=== PATIENT | female | born 1930 | race Two or more races ===

== ENCOUNTER 2018-09-23 10:06 | Observation (INO) | payer MEDICARE, OTHER ==
[2018-09-23] MEDS ORDERED: ACETAMINOPHEN 500 MG TABLET (FP) PO ONE (10:39)
--- NOTE | 2018-09-23 10:43 | PDOC ---
History of Present Illness - General Chief Complaint: Chest Pain Stated Complaint: CHEST PAIN Time Seen by Provider: 09/23/18 10:11 History Source: Patient, Care Provider, Family Exam Limitations: No Limitations - History of Present Illness Initial Comments: 09/23/18 10:40 This is a 88 year old female with a history of HTN, CAN s/p stents in 2007, who presents with chest pain/right lateral chest wall pain with deep inspiration for the past two days. Patient endorses intermittent non productive cough, denies jaw pain, [place], blurry vision, diaphoresis, numbess/tingling, fever, chills , n, v, d, injury, sick contacts, and has not had the flu shot shot this year. Right sided chest pain is palpable, worse with movement and inspiration. Anterior chest pain is pressure like and worse with inspiration and exertion, although can present at rest. PMH: HTN, CAD, HLD, depression PSH: choleycystectomy Social: denies tobacco or alcohol use, lives alone at home, has aide NKDA Past History - Past Medical History Allergies/Adverse Reactions: Allergies Allergy/AdvReac Type Severity Reaction Status Date / Time No Known Allergies Allergy Verified 12/06/15 12:36 Home Medications: Ambulatory Orders Atorvastatin Ca [Lipitor] 40 mg PO HS 12/06/15 Clopidogrel Bisulfate [Plavix -] 75 mg PO DAILY 12/06/15 Gabapentin [Neurontin] 300 mg PO TID 12/06/15 Loratadine [Claritin -] 10 mg PO DAILY 12/06/15 Metformin HCl 850 mg PO DAILY 12/06/15 Metoprolol Tartrate [Lopressor -] 50 mg PO DAILY 12/06/15 Paroxetine HCl [Paxil] 30 mg PO DAILY 12/06/15 Cardiac Disorders: Yes (CAD) COPD: No Diabetes: Yes HTN: Yes - Surgical History Cardiac Surgery: Yes (2 stents) - Immunization History Immunization Up to Date: Yes - Suicide/Smoking/Psychosocial Hx Smoking History: Never smoked Have you smoked in the past 12 months: No Information on smoking cessation initiated: No Hx Alcohol Use: No Drug/Substance Use Hx: No Substance Use Type: None Review of Systems - Review of Systems Able to Perform ROS?: Yes Is the patient limited [place] proficient: No Constitutional: No: Chills, Diaphoresis, Fever, Loss of Appetite, Night Sweats, Weakness HEENTM: No: Blurred Vision, Tearing, Nose Pain, Nose Congestion Respiratory: Yes: Cough, Shortness of Breath, SOB with Exertion, SOB at Rest. No: Orthopnea, Wheezing, Productive cough, Hemoptysis Cardiac (ROS): Yes: Chest Pain. No: Edema, Irregular Heart Rate, Lightheadedness, Palpitations, Syncope, Chest Tightness ABD/GI: No: Abdominal Distended, Abd. Pain w/ defecation, Constipated, Diarrhea , Difficulty Swallowing, Nausea, Vomiting : Yes: Dysuria Musculoskeletal: No: Back Pain Integumentary: No: Bruising, Change in Hair/Nails Neurological: No: Headache, Numbness, Paresthesia, Tingling, Weakness, Unsteady Gait, Dizziness Psychiatric: Yes: Depression Endocrine: No: Excessive Sweating *Physical Exam - Vital Signs Last Vital Signs Temp Pulse Resp BP Pulse Ox 98 F 82 18 162/71 96 09/23/18 10:10 09/23/18 10:10 09/23/18 10:10 09/23/18 10:10 09/23/18 10:29 - Physical Exam General Appearance: Yes: Appropriately Dressed, Apparent Distress HEENT: positive: Normal ENT Inspection, Normal Voice, Pharynx Normal, Other ( dry mucus menbranes) Respiratory/Chest: positive: Decreased Breath Sounds (RLL crackles with inspiration and experation), Crackles. negative: Normal Breath Sounds, Respiratory Distress Cardiovascular: positive: Regular Rate, S1, S2. negative: Murmur Vascular Pulses: Carotid (R): 2+, Carotid (L): 2+, Dorsalis-Pedis (R): 2+, Doralis-Pedis (L): 2+ Gastrointestinal/Abdominal: positive: Normal Bowel Sounds, Soft. negative: Tender Musculoskeletal: negative: CVA Tenderness Extremity: positive: Normal Inspection, Normal Range of Motion Integumentary: positive: Dry Neurologic: positive: flower grader II-XII NML intact, Normal Mood/Affect, Motor Strength 5/5 Heart Score/ECG Review - History History: Highly suspicious - Electrocardiogram EKG: Non specific repolarization disturbance - Age Age: >/= 65 - Risk Factors Risk Factors Heart Score: Yes Hx Hypercholesterolemia, Yes Hx Hypertension Based on the list above the patient has:: 1-2 risk factors - ECG Intrepretation Rhythm: Regular Rhythm - Hiko Hiko: Normal - P and VA Prominent R with upright T in V1 (true posterior [place]): No Delta Wave(s) Present: No WPW: No - ST and T Non Specific ST-T Wave changes: Yes Flattened T Waves: Yes Comment:: 09/23/18 11:49 v2, v5-6 - ECG Impressions Bradycardia: No Tachycardia: Sinus Torsades ravi Pointes: No WPW: No ED Treatment Course - LABORATORY CBC & Chemistry Diagram: 09/23/18 10:47 09/23/18 10:47 - RADIOLOGY Radiology Studies Ordered: Category Date Time Status CHEST PA & LAT [RAD] Stat Radiology 09/23/18 10:24 Ordered Medical Decision Making - Medical Decision Making 09/23/18 11:01 This is a 88 year old Gabonese speaking female with a history of CAD, HTN, HLD, who presents with cough, right/lateral chest wall pain, anterior chest pain with deep inspiration. R/O acute lung/cardiac/bone pathology, including pneumonia, effusion, ACS, fracture, coscochondritis. #chest pain with shortness of breath -cbc, cmp, ua -CXR -ecg -cardiac profile 09/23/18 12:19 -CXR negative to active process including pna, effusion -will get chest CTA to r/o PE due to presenting symptoms, mild hypoxia, sob -r/o ACS; first topponin negative; follow up second -will admit to tele/obs for further work up/monitoring 09/23/18 12:37 -admit to telemetry for obs; Dr. Alonzo accepts. 09/23/18 12:39 *DC/Admit/Observation/Transfer Diagnosis at time of Disposition: Shortness of breath, Costochondral chest pain Chest pain Qualifiers: Chest pain type: intercostal pain Qualified Code(s): R07.82 - Intercostal pain - Discharge Dispostion Decision to Admit order: Yes - Referrals Referrals: Lila Gongora MD [Primary Care Provider] - - Patient Instructions - Post Discharge Activity
--- NOTE | 2018-09-23 10:53 | PDOC ---
Attending Attestation - Resident Resident Name: Tiffanie Alba - ED Attending Attestation I have performed the following: I have examined & evaluated the patient, The case was reviewed & discussed with the resident, I agree w/resident's findings & plan - HPI HPI: 09/23/18 10:53 88 female with history of PR status post stent in 2007 presents with right- sided thoracic and chest pain since yesterday. No injury or strain, reports constant right thoracic pain in the axillary line, localized and worse with positional changes and deep inspiration. Also reports precordial chest pain with deep inspiration, some subjective shortness of breath, reported cough by aid but denied by patient, no fevers or chills. The precordial chest pain is similar to her past angina, the right thoracic pain is new. Denies any abdominal pain or nausea or vomiting, denies any urinary complaints. - Physicial Exam PE: 09/23/18 10:54 Vital signs are within normal limits Alert, speaking full sentences, slight distress with deep inspiration Heart is regular with ectopy and trigeminal pattern, appears to be a disease on monitor. 2/6 systolic ejection murmur. Crackles at the right base, lungs are otherwise clear No rash or bruising, no reproducible rib deformity or tenderness or crepitus No edema - Medical Decision Making 09/23/18 10:55 88-year-old female with right thoracic pain for 1 day and pruritic precordial pain. Vitals are within normal limits with O2 sat notably 95% on room air, crackles at the right base. Rule out pneumonia, rule out effusion, rule out ACS. Labs, EKG Chest x-ray Admission Heart Score/ECG Review #1 ECG reviewed & interpreted by me at: 10:20 General ECG Interpretation: Sinus Rhythm (no ectopy noted on this EKG), Normal Rate (73), Normal Intervals (qtc 409, LVH), No acute ischemic changes (TWI I/AVL ,) Compared to previous ECG there are: No significant change (c/w 12/06/15, TWI I/ AVL more prominent)
[2018-09-23 11:10] LABS: EOS % 11.9 % (0-4.5); HEMATOCRIT 37.6 % (32.4-45.2); HEMOGLOBIN 13.1 GM/dL (10.7-15.3); LYMPH % 18.5 % (8-40); MCH 34.9 pg (25.7-33.7); MCHC 34.9 g/dl (32.0-36.0); MEAN CELL VOLUME 100.2 fl (80-96); MEAN PLT VOLUME 9.4 fl (7.5-11.1); MONO % 9.7 % (3.8-10.2); NEUT % 58.9 % (42.8-82.8); PLATELET COUNT 249 K/MM3 (134-434); RBC 3.75 M/mm3 (3.60-5.2); RDW 12.5 % (11.6-15.6); WHITE BLOOD COUNT 9.4 K/mm3 (4.0-10.0)
[2018-09-23] MEDS ORDERED: ACETAMINOPHEN 325 MG TABLET (FP) ONE (11:12)
[2018-09-23 11:35] LABS: URINE APPEARANCE CLEAR; URINE BILIRUBIN NEGATIVE (<2.0 mg/dL); URINE COLOR STRAW; URINE GLUCOSE (UA) NEGATIVE (NEGATIVE); URINE KETONE NEGATIVE (NEGATIVE); URINE LEUK ESTERASE 1+ (NEGATIVE); URINE NITRITE NEGATIVE (NEGATIVE); URINE PROTEIN NEGATIVE (NEGATIVE); URINE UROBILINOGEN NEGATIVE mg/dL (0.2-1.0)
[2018-09-23 11:42] LABS: EPI CELLS RARE /HPF (FEW); URINE BACTERIA RARE /hpf (NONE SEEN)
[2018-09-23 11:59] LABS: INR 1.01 (0.83-1.09); PROTHROMBIN TIME (PATIENT) 11.9 SEC (9.7-13.0)
[2018-09-23 12:07] LABS: ALBUMIN 3.4 g/dl (3.4-5.0); ALK PHOS 116 U/L (45-117); ANION GAP 8 MMOL/L (8-16); BILIRUBIN,TOTAL 0.4 mg/dL (0.2-1); BLOOD UREA NITROGEN 20 mg/dL (7-18); CALCIUM 9.5 mg/dL (8.5-10.1); CHLORIDE 103 mmol/L (98-107); CO2 29 mmol/L (21-32); CREATININE 1.3 mg/dL (0.55-1.3); GLUCOSE,RANDOM 248 mg/dL (74-106); POTASSIUM 4.7 mmol/L (3.5-5.1); SGOT/AST 19 U/L (15-37); SGPT/ALT 18 U/L (13-61); SODIUM 140 mmol/L (136-145); TOT PROT 7.3 g/dl (6.4-8.2)
--- NOTE | 2018-09-23 14:31 | HP ---
CHIEF COMPLAINT: pain upon inspiration PCP: HISTORY OF PRESENT ILLNESS: 88 y/o female with PMH of of HTN, CAD (s/p stent in 2007), DM, HLD, presents to the ED with a one day history of pain with deep inspiration with associated rib pain. Patient states that the pain started yesterday, its been constant, no radiating, and hurts more so with inspiration. She denies any fevers, chills, or cough. OF note, patient hasn't had a repeat cath and her last stress test was 5 years ago and her wax pumper is . She denies any recent travel. ER course was notable for: (1) vital signs stable, labs unremarkable (2) first set of troponins negative- EKG unremarkable (3) CXR no acute pathology, CTA negative for pulmonary embolism Recent Travel: none PAST MEDICAL HISTORY: see above PAST SURGICAL HISTORY: cholecystectomy, liposuction Social History: Smoking: denies Alcohol:denies Drugs: denies Family History: 2 sons both have cardiac disease; mother had DM Allergies No Known Allergies Allergy (Verified 12/06/15 12:36) HOME MEDICATIONS: Home Medications Medication Instructions Recorded Atorvastatin Ca [Lipitor] 40 mg PO HS 12/06/15 Clopidogrel Bisulfate [Plavix -] 75 mg PO DAILY 12/06/15 Gabapentin [Neurontin] 300 mg PO TID 12/06/15 Loratadine [Claritin -] 10 mg PO DAILY 12/06/15 Metoprolol Tartrate [Lopressor -] 50 mg PO BID 12/06/15 Paroxetine HCl [Paxil] 30 mg PO DAILY 12/06/15 Amlodipine Besylate [Norvasc -] 5 mg PO DAILY 09/23/18 Aspirin [ASA -] 81 mg PO DAILY 09/23/18 Glimepiride 4 mg PO DAILY 09/23/18 Isosorbide Mononitrate [Imdur -] 30 mg PO DAILY 09/23/18 Metformin HCl 850 mg PO DAILY 09/23/18 REVIEW OF SYSTEMS CONSTITUTIONAL: Absent: fever, chills, diaphoresis, generalized weakness, malaise, loss of appetite, weight change HEENT: Absent: rhinorrhea, nasal congestion, throat pain, throat swelling, difficulty swallowing, mouth swelling, ear pain, eye pain, visual changes CARDIOVASCULAR: Present:chest pain Absent: chest pain, syncope, palpitations, irregular heart rate, lightheadedness, peripheral edema RESPIRATORY: Present: shortness of breath Absent: cough, shortness of breath, dyspnea with exertion, orthopnea, wheezing, stridor, hemoptysis GASTROINTESTINAL: Absent: abdominal pain, abdominal distension, nausea, vomiting, diarrhea, constipation, melena, hematochezia GENITOURINARY: Absent: dysuria, frequency, urgency, hesitancy, hematuria, flank pain, genital pain MUSCULOSKELETAL: Absent: myalgia, arthralgia, joint swelling, back pain, neck pain SKIN: Absent: rash, itching, pallor HEMATOLOGIC/IMMUNOLOGIC: Absent: easy bleeding, easy bruising, lymphadenopathy, frequent infections ENDOCRINE: Absent: unexplained weight gain, unexplained weight loss, heat intolerance, cold intolerance NEUROLOGIC: Absent: headache, focal weakness or paresthesias, dizziness, unsteady gait, seizure, mental status changes, bladder or bowel incontinence PSYCHIATRIC: Absent: anxiety, depression, suicidal or homicidal ideation, hallucinations. PHYSICAL EXAMINATION Vital Signs - 24 hr 09/23/18 09/23/18 09/23/18 10:10 10:29 12:20 Temperature 98 F 98.8 F Pulse Rate 82 Pulse Rate [ 64 Apical] Respiratory 18 17 Rate Blood Pressure 162/71 Blood Pressure 134/72 [Right Arm] O2 Sat by Pulse 95 96 96 Oximetry (%) GENERAL: Awake, alert, and fully oriented, in no acute distress. EYES:no scleral icterus.. NECK: no lymphadenopathy, no JVD LUNGS: CTA B/L; no rales, rhonchi or wheezing- pain upon inspiration HEART: Regular rate and rhythm, normal S1 and S2 without murmur, rub or gallop. ABDOMEN: Soft, nontender, not distended, normoactive bowel sounds, no guarding, no rebound, no masses. No hepatomegaly or splenomegaly. MUSCULOSKELETAL: L sided rib tenderness upon palpation,. UPPER EXTREMITIES: 2+ pulses, warm, well-perfused. No cyanosis. No clubbing. No peripheral edema. LOWER EXTREMITIES: 2+ pulses, warm, well-perfused. No calf tenderness. No peripheral edema. NEUROLOGICAL: Cranial nerves II-XII intact. Normal speech. 1+ reflexes B/L upper and lower extremities PSYCHIATRIC: Cooperative. Good eye contact. Appropriate mood and affect. SKIN: Warm, dry, normal turgor, no rashes or lesions noted, normal capillary refill. Laboratory Results - last 24 hr 09/23/18 09/23/18 09/23/18 10:47 10:47 10:47 WBC 9.4 RBC 3.75 Hgb 13.1 Hct 37.6 MCV 100.2 H MCH 34.9 H MCHC 34.9 RDW 12.5 Plt Count 249 MPV 9.4 D Absolute Neuts (auto) 5.5 Neutrophils % 58.9 Lymphocytes % 18.5 D Monocytes % 9.7 Eosinophils % 11.9 H Basophils % 1.0 Nucleated RBC % 0 PT with INR 11.90 INR 1.01 Sodium 140 Potassium 4.7 Chloride 103 Carbon Dioxide 29 Anion Gap 8 BUN 20 H Creatinine 1.3 Creat Clearance w eGFR 38.84 Random Glucose 248 H Calcium 9.5 Total Bilirubin 0.4 AST 19 ALT 18 Alkaline Phosphatase 116 Creatine Kinase 100 Troponin I < 0.02 Total Protein 7.3 Albumin 3.4 Urine Color Urine Appearance Urine pH Ur Specific [place] Urine Protein Urine Glucose (UA) Urine Ketones Urine Blood Urine Nitrite Urine Bilirubin Urine Urobilinogen Ur Leukocyte Esterase Urine WBC (Auto) Urine RBC (Auto) Ur Epithelial Cells Urine Bacteria 09/23/18 10:59 WBC RBC Hgb Hct MCV MCH MCHC RDW Plt Count MPV Absolute Neuts (auto) Neutrophils % Lymphocytes % Monocytes % Eosinophils % Basophils % Nucleated RBC % PT with INR INR Sodium Potassium Chloride Carbon Dioxide Anion Gap BUN Creatinine Creat Clearance w eGFR Random Glucose Calcium Total Bilirubin AST ALT Alkaline Phosphatase Creatine Kinase Troponin I Total Protein Albumin Urine Color Straw Urine Appearance Clear Urine pH 6.0 Ur Specific [place] 1.004 L Urine Protein Negative Urine Glucose (UA) Negative Urine Ketones Negative Urine Blood Negative Urine Nitrite Negative Urine Bilirubin Negative Urine Urobilinogen Negative Ur Leukocyte Esterase 1+ H Urine WBC (Auto) 2 Urine RBC (Auto) <1 Ur Epithelial Cells Rare Urine Bacteria Rare ASSESSMENT/PLAN: 88 y/o female with PMH of HTN, CAD (s/p stent), HLD, DM presents to the ED with a one day history of pain upon inspiration and left sided rib pain # Chest Pain likely 2/2 costochondritis EKG and first set of troponins normal -Echo ordered -trops negative times 3 -CTA negative for PE -monitor vitals and heomodynamics #CAD -c/w aspirin and plavix 75 #HTN -resume home meds: -lopressor 50 BID -amlodipine 5 daily -imdur 30 daily #HLD -continue with lipitor 40 daily #DM -holding oral medications -ISS -BGMS ACHS F/E/N -not on fluids -replete electrolytes when needed sdoium controlled diet DVT PPX: heparin SQ TID dispo: tele-obs Problem List - Problem (1) Chest pain Code(s): R07.9 - CHEST PAIN, UNSPECIFIED Qualifiers: Chest pain type: intercostal pain Qualified Code(s): R07.82 - Intercostal pain (2) Costochondral chest pain Code(s): R07.1 - CHEST PAIN ON BREATHING (3) CAD (coronary artery disease) Code(s): I25.10 - ATHSCL HEART DISEASE OF [place] CORONARY ARTERY W/O ANG PCTRS Visit type - Emergency Visit Emergency Visit: Yes ED Registration Date: 09/23/18 Care time: The patient presented to the Emergency Department on the above date and was hospitalized for further evaluation of their emergent condition. - New Patient This patient is new to me today: Yes Date on this admission: 09/24/18 - Critical Care Critical Care patient: No
[2018-09-23] MEDS ORDERED: HEPARIN NA (PORCINE) 5,000 UNITS/ML 1ML VIAL ONE (15:43)
[2018-09-23] MEDS: HEPARIN NA (PORCINE) 5,000 UNITS/ML 1ML VIAL SQ SCH ×2 (15:46→21:35)
--- NOTE | 2018-09-23 15:53 | EKG ---
Test Reason : Blood Pressure : / mmHG Vent. Rate : 073 BPM Atrial Rate : 073 BPM P-R Int : 188 ms QRS Dur : 084 ms QT Int : 372 ms P-R-T Axes : 029 -20 091 degrees QTc Int : 409 ms NORMAL SINUS RHYTHM MODERATE VOLTAGE CRITERIA FOR LVH, MAY BE NORMAL VARIANT NONSPECIFIC T WAVE ABNORMALITY ABNORMAL ECG WHEN COMPARED WITH ECG OF 06-DEC-2015 12:41, INVERTED T WAVES HAVE REPLACED NONSPECIFIC T WAVE ABNORMALITY IN LATERAL LEADS Confirmed by Lai Barlow ([id number]) on 09/23/2018 3:53:22 PM Referred By: Confirmed By:Lai Barlow
[2018-09-23] MEDS: INSULIN SLIDING SCALE (NOVOLOG) 1 VIAL SQ SCH ×2 (17:09→21:41)
--- NOTE | 2018-09-23 18:06 | PN ---
Teaching Attending Note Name of Resident: Veronica Ariza ATTENDING PHYSICIAN STATEMENT I saw and evaluated the patient. I reviewed the resident's note and discussed the case with the resident. I agree with the resident's findings and plan as documented. SUBJECTIVE: This is an 88 year old woman with a history of HTN, hyperlipidemia, CAD, stent, type 2 DM who comes to the ED complaining of right-sided chest pain that is worse with inspiration since yesterday. She denies palpitations, SOB, dizziness, nausea. OBJECTIVE: Vital Signs Period Temp Pulse Resp BP Sys/Balderas Pulse Ox Last 24 Hr 98 F-98.8 F 60-82 17-18 133-162/71-74 95-100 HEART: S1S2, RRR LUNGS: Clear CHEST: (+) tenderness of anterior and lateral right chest wall ABDOMEN: Soft, non-tender, non-distended, normal BS EXTREMITIES: No edema Laboratory Tests 09/23/18 09/23/18 09/23/18 10:47 10:47 10:47 WBC 9.4 RBC 3.75 Hgb 13.1 Hct 37.6 MCV 100.2 H MCH 34.9 H MCHC 34.9 RDW 12.5 Plt Count 249 MPV 9.4 D Absolute Neuts (auto) 5.5 Neutrophils % 58.9 Lymphocytes % 18.5 D Monocytes % 9.7 Eosinophils % 11.9 H Basophils % 1.0 Nucleated RBC % 0 PT with INR 11.90 INR 1.01 Sodium 140 Potassium 4.7 Chloride 103 Carbon Dioxide 29 Anion Gap 8 BUN 20 H Creatinine 1.3 Creat Clearance w eGFR 38.84 POC Glucometer Random Glucose 248 H Calcium 9.5 Total Bilirubin 0.4 AST 19 ALT 18 Alkaline Phosphatase 116 Creatine Kinase 100 Troponin I < 0.02 Total Protein 7.3 Albumin 3.4 Urine Color Urine Appearance Urine pH Ur Specific [place] Urine Protein Urine Glucose (UA) Urine Ketones Urine Blood Urine Nitrite Urine Bilirubin Urine Urobilinogen Ur Leukocyte Esterase Urine WBC (Auto) Urine RBC (Auto) Ur Epithelial Cells Urine Bacteria 09/23/18 09/23/18 09/23/18 10:59 17:00 17:06 WBC RBC Hgb Hct MCV MCH MCHC RDW Plt Count MPV Absolute Neuts (auto) Neutrophils % Lymphocytes % Monocytes % Eosinophils % Basophils % Nucleated RBC % PT with INR INR Sodium Potassium Chloride Carbon Dioxide Anion Gap BUN Creatinine Creat Clearance w eGFR POC Glucometer 117.23050 Random Glucose Calcium Total Bilirubin AST ALT Alkaline Phosphatase Creatine Kinase Troponin I < 0.02 Total Protein Albumin Urine Color Straw Urine Appearance Clear Urine pH 6.0 Ur Specific [place] 1.004 L Urine Protein Negative Urine Glucose (UA) Negative Urine Ketones Negative Urine Blood Negative Urine Nitrite Negative Urine Bilirubin Negative Urine Urobilinogen Negative Ur Leukocyte Esterase 1+ H Urine WBC (Auto) 2 Urine RBC (Auto) <1 Ur Epithelial Cells Rare Urine Bacteria Rare Home Medications Medication Instructions Recorded Atorvastatin Ca [Lipitor] 40 mg PO HS 12/06/15 Clopidogrel Bisulfate [Plavix -] 75 mg PO DAILY 12/06/15 Gabapentin [Neurontin] 300 mg PO TID 12/06/15 Loratadine [Claritin -] 10 mg PO DAILY 12/06/15 Metoprolol Tartrate [Lopressor -] 50 mg PO BID 12/06/15 Paroxetine HCl [Paxil] 30 mg PO DAILY 12/06/15 Amlodipine Besylate [Norvasc -] 5 mg PO DAILY 09/23/18 Aspirin [ASA -] 81 mg PO DAILY 09/23/18 Glimepiride 4 mg PO DAILY 09/23/18 Isosorbide Mononitrate [Imdur -] 30 mg PO DAILY 09/23/18 Metformin HCl 850 mg PO DAILY 09/23/18 ASSESSMENT AND PLAN: 1. Chest pain - Likely musculoskeletal - Chest CTA negative for PE - Observe on telemetry - Serial troponins - Echocardiogram 2. CAD, history of cornoary stent - Continue aspirin, Lopressor, Lipitor, Imdur, Plavix 3. HTN - Continue Norvasc, Lopressor 4. Hyperlipidemia - Continue Lipitor 5. Type 2 DM - Hold metformin secondary to CT contrast given - Hold Amaryl - Fingersticks with Novolog sliding scale
[2018-09-23] MEDS: METOPROLOL TARTRATE 50 MG TABLET (FP) PO SCH (21:35)
[2018-09-23] MEDS ORDERED: ATORVASTATIN CA 40 MG TABLET (FP) PO SCH (22:00)
[2018-09-24 01:55] VITALS: BMI 23.3
[2018-09-24] MEDS: HEPARIN NA (PORCINE) 5,000 UNITS/ML 1ML VIAL SQ SCH ×2 (05:47→13:59)
[2018-09-24 06:27] LABS: BASO % 1.5 % (0-2.0); EOS % 21.2 % (0-4.5); HEMATOCRIT 36.8 % (32.4-45.2); HEMOGLOBIN 12.4 GM/dL (10.7-15.3); MCHC 33.6 g/dl (32.0-36.0); MEAN PLT VOLUME 9.1 fl (7.5-11.1); MONO % 11.7 % (3.8-10.2); NEUT % 24.6 % (42.8-82.8); PLATELET COUNT 221 K/MM3 (134-434); RBC 3.75 M/mm3 (3.60-5.2); RDW 12.4 % (11.6-15.6); WHITE BLOOD COUNT 7.2 K/mm3 (4.0-10.0)
[2018-09-24] MEDS: INSULIN SLIDING SCALE (NOVOLOG) 1 VIAL SQ SCH ×4 (07:05→17:28)
[2018-09-24 07:14] LABS: ALBUMIN 3.1 g/dl (3.4-5.0); ALK PHOS 91 U/L (45-117); ANION GAP 7 MMOL/L (8-16); BILIRUBIN,TOTAL 0.5 mg/dL (0.2-1); BLOOD UREA NITROGEN 23 mg/dL (7-18); CALCIUM 9.4 mg/dL (8.5-10.1); CHLORIDE 104 mmol/L (98-107); CO2 30 mmol/L (21-32); GLUCOSE,RANDOM 79 mg/dL (74-106); MAGNESIUM 1.6 mg/dL (1.8-2.4); PHOSPHOROUS 3.6 mg/dL (2.5-4.9); POTASSIUM 4.2 mmol/L (3.5-5.1); SGOT/AST 23 U/L (15-37); SGPT/ALT 22 U/L (13-61); SODIUM 141 mmol/L (136-145); TOT PROT 6.5 g/dl (6.4-8.2)
--- NOTE | 2018-09-24 09:54 | EKG ---
Test Reason : Blood Pressure : / mmHG Vent. Rate : 064 BPM Atrial Rate : 064 BPM P-R Int : 216 ms QRS Dur : 086 ms QT Int : 406 ms P-R-T Axes : 031 -10 098 degrees QTc Int : 418 ms SINUS RHYTHM WITH 1ST DEGREE A-V BLOCK WITH PREMATURE ATRIAL COMPLEXES MINIMAL VOLTAGE CRITERIA FOR LVH, MAY BE NORMAL VARIANT NONSPECIFIC T WAVE ABNORMALITY ABNORMAL ECG WHEN COMPARED WITH ECG OF 23-SEP-2018 10:20, PREMATURE ATRIAL COMPLEXES ARE NOW PRESENT Confirmed by SOCRATES NUNEZ, FITZ ([id number]) on 09/24/2018 9:54:24 AM Referred By: Confirmed By:FITZ CROWELL MD
--- NOTE | 2018-09-24 09:56 | EKG ---
Test Reason : Blood Pressure : / mmHG Vent. Rate : 065 BPM Atrial Rate : 065 BPM P-R Int : 202 ms QRS Dur : 082 ms QT Int : 390 ms P-R-T Axes : 050 -10 096 degrees QTc Int : 405 ms SINUS RHYTHM WITH PREMATURE ATRIAL COMPLEXES NONSPECIFIC T WAVE ABNORMALITY ABNORMAL ECG WHEN COMPARED WITH ECG OF 24-SEP-2018 00:11, NO SIGNIFICANT CHANGE WAS FOUND Confirmed by SOCRATES NUNEZ, FITZ ([id number]) on 09/24/2018 9:56:08 AM Referred By: Confirmed By:FITZ CROWELL MD
[2018-09-24] MEDS ORDERED: ISOSORBIDE MONONITRATE 30 MG TAB.SR.24H (FP) PO SCH (10:00)
[2018-09-24] MEDS ORDERED: CLOPIDOGREL BISULFATE 75 MG TABLET (FP) PO SCH (10:00)
[2018-09-24] MEDS ORDERED: ASPIRIN 81 MG CHEWABLE TABLETS PO SCH (10:00)
[2018-09-24] MEDS ORDERED: amLODIPine BESYLATE 5 MG TABLET (FP) PO SCH (10:00)
[2018-09-24 11:42] LABS: ANISOCYTOSIS 1+; MACROCYTOSIS 1+
[2018-09-24] MEDS: METOPROLOL TARTRATE 50 MG TABLET (FP) PO SCH (12:26)
--- NOTE | 2018-09-24 13:11 | ECHO ---
Name: SINGH, SONI Exam:Adult Echocardiogram Study Date: 09/24/2018 10:37 AM Age: 88 yrs Reason For Study: Chest pain Height: 62 in Weight: 130 lb BSA: 1.6 m2 MMode/2D Measurements & Calculations IVSd: 0.77 cm Ao root diam: 3.1 cm LVIDd: 4.4 cm LA dimension: 3.6 cm LVIDs: 2.7 cm LVPWd: 0.99 cm EDV(Teich): 90.0 ml LVOT diam: 2.0 cm ESV(Teich): 28.2 ml Doppler Measurements & Calculations MV E max luiz: 47.4 cm/sec LV V1 max P.4 mmHg MV A max luiz: 82.4 cm/sec LV V1 mean P.1 mmHg MV E/A: 0.57 LV V1 max: 92.3 cm/sec MV dec time: 0.34 sec LV V1 mean: 67.5 cm/sec LV V1 VTI: 21.4 cm MR max luiz: 498.5 cm/sec SV(LVOT): 67.5 ml MR max P.4 mmHg TR max luiz: 201.8 cm/sec Med Peak E' Luiz: 3.1 cm/sec TR max P.8 mmHg Med E/e': 15.4 Lat Peak E' Luiz: 3.7 cm/sec Lat E/e': 12.7 Procedure A two-dimensional transthoracic echocardiogram with color flow and Doppler was performed. Left Ventricle The left ventricular size, thickness and function are normal. The left ventricular ejection fraction is normal. E/A reversal consistent with but not diagnostic of poor LV compliance. The left ventricular w all motion is normal. Right Ventricle The right ventricle is normal in size and function. Atria Normal left and right atrial size and function. Mitral Valve There is mild mitral valve thickening. There is no mitral valve stenosis. There is moderate mitral regurgitation. Tricuspid Valve There is mild tricuspid valve thickening. There is no tricuspid stenosis. There is mild tricuspid regurgitation. Right ventricular systolic pressure is normal. Aortic Valve The aortic valve is normal in structure and function. No hemodynamically significant valvular aortic stenosis. No aortic regurgitation is present. Pulmonic Valve The pulmonic valve is not well visualized. There is no pulmonic valvular stenosis. There is no pulmon ic valvular regurgitation. Great Vessels The aortic root is normal size. Pericardium/Pleura There is no pericardial effusion. Interpretation Summary The left ventricular size, thickness and function are normal The left ventricular ejection fraction is normal. The left ventricular wall motion is normal. The aortic valve is normal in structure and function. There is mild tricuspid regurgitation. Right ventricular systolic pressure is normal. E/A reversal consistent with but not diagnostic of poor LV compliance There is moderate mitral regurgitation. MD Jerad Dotson 09/24/2018 01:11 PM
[2018-09-24 15:31] VITALS: PULSE 73; TEMP 98
[2018-09-24 15:33] VITALS: BP 136/76
--- NOTE | 2018-09-24 15:41 | DS ---
Physical Exam: SUBJECTIVE: Patient seen and examined at bedside. no acute events overnight- patient states she is feeling better and having less pain in her chest and in her ribs. no events noted on tele- she denies any CP/SOB/N/V fevers or chills OBJECTIVE: Vital Signs Period Temp Pulse Resp BP Sys/Balderas Pulse Ox Last 24 Hr 97.4 F-98.8 F 58-73 17-20 111-137/58-76 96-100 PHYSICAL EXAM GENERAL: The patient is awake, alert, and fully oriented, in no acute distress. EYES: no scleral icterus. NECK: no JVD, no lymphadenopathy LUNGS: CTA B/L:; no rales, rhonchi or wheezing; tenderness upon palaption near the right rib. HEART: Regular rate and rhythm, S1, S2 without murmur, rub or gallop. ABDOMEN: Soft, nontender, nondistended, normoactive bowel sounds, no guarding, no rebound, no hepatosplenomegaly, no masses. EXTREMITIES: 2+ pulses, warm, well-perfused, no edema. PSYCH: Normal mood, normal affect. SKIN: Warm, dry, normal turgor, no rashes or lesions noted. LABS Laboratory Results - last 24 hr 09/23/18 09/23/18 09/23/18 17:00 17:06 21:36 WBC RBC Hgb Hct MCV MCH MCHC RDW Plt Count MPV Absolute Neuts (auto) Neutrophils % Neutrophils % (Manual) Band Neutrophils % Lymphocytes % Lymphocytes % (Manual) Monocytes % Monocytes % (Manual) Eosinophils % Eosinophils % (Manual) Basophils % Basophils % (Manual) Myelocytes % (Man) Promyelocytes % (Man) Blast Cells % (Manual) Nucleated RBC % Metamyelocytes Anisocytosis Macrocytosis Sodium Potassium Chloride Carbon Dioxide Anion Gap BUN Creatinine Creat Clearance w eGFR POC Glucometer [phone] Random Glucose Calcium Phosphorus Magnesium Total Bilirubin AST ALT Alkaline Phosphatase Troponin I < 0.02 Total Protein Albumin 09/23/18 09/24/18 09/24/18 22:15 05:30 05:30 WBC 7.2 RBC 3.75 Hgb 12.4 Hct 36.8 MCV 98.0 H MCH 33.0 MCHC 33.6 RDW 12.4 Plt Count 221 MPV 9.1 Absolute Neuts (auto) 1.8 Neutrophils % 24.6 L D Neutrophils % (Manual) 34.4 L Band Neutrophils % 1.0 Lymphocytes % 41.0 H D Lymphocytes % (Manual) 34.3 Monocytes % 11.7 H Monocytes % (Manual) 8 Eosinophils % 21.2 H* Eosinophils % (Manual) 19.2 H Basophils % 1.5 Basophils % (Manual) 0.0 Myelocytes % (Man) 0 Promyelocytes % (Man) 0 Blast Cells % (Manual) 0 Nucleated RBC % 0 Metamyelocytes 0 Anisocytosis 1+ Macrocytosis 1+ Sodium 141 Potassium 4.2 Chloride 104 Carbon Dioxide 30 Anion Gap 7 L BUN 23 H Creatinine 1.0 Creat Clearance w eGFR 52.57 POC Glucometer Random Glucose 79 Calcium 9.4 Phosphorus 3.6 Magnesium 1.6 L Total Bilirubin 0.5 AST 23 ALT 22 Alkaline Phosphatase 91 Troponin I < 0.02 Total Protein 6.5 Albumin 3.1 L 09/24/18 09/24/18 05:44 12:07 WBC RBC Hgb Hct MCV MCH MCHC RDW Plt Count MPV Absolute Neuts (auto) Neutrophils % Neutrophils % (Manual) Band Neutrophils % Lymphocytes % Lymphocytes % (Manual) Monocytes % Monocytes % (Manual) Eosinophils % Eosinophils % (Manual) Basophils % Basophils % (Manual) Myelocytes % (Man) Promyelocytes % (Man) Blast Cells % (Manual) Nucleated RBC % Metamyelocytes Anisocytosis Macrocytosis Sodium Potassium Chloride Carbon Dioxide Anion Gap BUN Creatinine Creat Clearance w eGFR POC Glucometer 91 155 Random Glucose Calcium Phosphorus Magnesium Total Bilirubin AST ALT Alkaline Phosphatase Troponin I Total Protein Albumin Imaging: CTA IMPRESSION: No CT evidence of pulmonary embolism. Mild right basilar and minimal left basilar bronchiectasis. Mild lingular scarring. Borderline cardiac size. Chest XRAY: Impression: No acute chest pathology. Elevated right hemidiaphragm. Large heart Echo: normal ejection fraction, no regional wall motion abnormalities, mild tricuspid regurgitation, normal RV systolic pressure HOSPITAL COURSE: Date of Admission:09/23/18 88 y/o female with PMH of HTN, CAD (s/p 2 stents), HLD DM presents to the ED with a one day history of pain upon inspiration and right sided rib pain. Patient has had admissions with similar complaints to this one in the past. 2 EKGS were done, showing no acute changes from her last EKG done in 2016. Trops X3 were negative. An echo was done which showed a normal ejection fraction, no regional wall motion abnormalities, mild TR with a normal RV systolic pressure. A CTA of the neck was also done which showed no evidence of a pulmonary embolism. Patient was monitored on the cardiac unit overnight and no acute events happened. Patient was stable enough to be discharged home and told to follow up with her PCP in one-two weeks. Date of Discharge: 09/24/18 Minutes to complete discharge: 39 Discharge Summary Reason For Visit: CHEST PAIN Current Active Problems Chest pain (Acute) Costochondral chest pain (Acute) Shortness of breath (Acute) Condition: Stable - Instructions Diet, Activity, Other Instructions: You came to the hospital with complaints of chest pain and right rib pain especially when you breathe. We did a chest XRAY which did not show any acute changes or pathology. They also did another exam called a CTA which visualizes the arterial and venous vessels throughout your body and there was no evidence of any clots present. We did an EKG of your heart which was normal and did blood tests measuring the enzymes of the heart and there was no evidence of any damage. We had you a monitored cardiac unit through the night and you were stable. You clinically improved, your pain subsided and you were stable for discharge home. Please resume all of your home medications Referrals: - we advise that you follow up with Dr. Gongora in one week. please get a blood test in one month. *if you begin to experience any chest pain, shortness of breath, nausea, fevers or vomiting please return to the emergency department immediately Referrals: Lila Gongora MD [Primary Care Provider] - 1 Week Disposition: HOME - Home Medications Comprehensive Discharge Medication List: Ambulatory Orders Atorvastatin Ca [Lipitor] 40 mg PO HS 12/06/15 Clopidogrel Bisulfate [Plavix -] 75 mg PO DAILY 12/06/15 Gabapentin [Neurontin] 300 mg PO TID 12/06/15 Loratadine [Claritin -] 10 mg PO DAILY 12/06/15 Metoprolol Tartrate [Lopressor -] 50 mg PO BID 12/06/15 Paroxetine HCl [Paxil] 30 mg PO DAILY 12/06/15 Amlodipine Besylate [Norvasc -] 5 mg PO DAILY 09/23/18 Aspirin [ASA -] 81 mg PO DAILY 09/23/18 Glimepiride 4 mg PO DAILY 09/23/18 Isosorbide Mononitrate [Imdur -] 30 mg PO DAILY 09/23/18 Metformin HCl 850 mg PO DAILY 09/23/18 Problem List - Problems (1) Chest pain Code(s): R07.9 - CHEST PAIN, UNSPECIFIED Qualifiers: Chest pain type: intercostal pain Qualified Code(s): R07.82 - Intercostal pain (2) Costochondral chest pain Code(s): R07.1 - CHEST PAIN ON BREATHING (3) CAD (coronary artery disease) Code(s): I25.10 - ATHSCL HEART DISEASE OF [place] CORONARY ARTERY W/O ANG PCTRS This patient is new to me today: No Emergency Visit: Yes ED Registration Date: 09/23/18 Care time: The patient presented to the Emergency Department on the above date and was hospitalized for further evaluation of their emergent condition. Critical Care patient: No - Discharge Referral Referred to [facility] Yes Physician Referral: Rosalind Wilkins MD ([facility])
--- NOTE | 2018-09-24 16:11 | PN ---
Teaching Attending Note Name of Resident: Veronica Ariza ATTENDING PHYSICIAN STATEMENT I saw and evaluated the patient. I reviewed the resident's note and discussed the case with the resident. I agree with the resident's findings and plan as documented. SUBJECTIVE: Patient feels better. She denies CP, SOB. OBJECTIVE: Vital Signs Period Temp Pulse Resp BP Sys/Balderas Pulse Ox Last 24 Hr 97.4 F-98.8 F 58-73 17-20 111-137/58-76 96-100 HEART: S1S2, RRR LUNGS: Clear CHEST: No chest wall tenderness ABDOMEN: Soft, non-tender, non-distended, normal BS EXTREMITIES: No edema Laboratory Results - last 24 hr 09/23/18 09/23/18 09/23/18 17:00 17:06 21:36 WBC RBC Hgb Hct MCV MCH MCHC RDW Plt Count MPV Absolute Neuts (auto) Neutrophils % Neutrophils % (Manual) Band Neutrophils % Lymphocytes % Lymphocytes % (Manual) Monocytes % Monocytes % (Manual) Eosinophils % Eosinophils % (Manual) Basophils % Basophils % (Manual) Myelocytes % (Man) Promyelocytes % (Man) Blast Cells % (Manual) Nucleated RBC % Metamyelocytes Anisocytosis Macrocytosis Sodium Potassium Chloride Carbon Dioxide Anion Gap BUN Creatinine Creat Clearance w eGFR POC Glucometer 117.82697 206 Random Glucose Calcium Phosphorus Magnesium Total Bilirubin AST ALT Alkaline Phosphatase Troponin I < 0.02 Total Protein Albumin 09/23/18 09/24/18 09/24/18 22:15 05:30 05:30 WBC 7.2 RBC 3.75 Hgb 12.4 Hct 36.8 MCV 98.0 H MCH 33.0 MCHC 33.6 RDW 12.4 Plt Count 221 MPV 9.1 Absolute Neuts (auto) 1.8 Neutrophils % 24.6 L D Neutrophils % (Manual) 34.4 L Band Neutrophils % 1.0 Lymphocytes % 41.0 H D Lymphocytes % (Manual) 34.3 Monocytes % 11.7 H Monocytes % (Manual) 8 Eosinophils % 21.2 H* Eosinophils % (Manual) 19.2 H Basophils % 1.5 Basophils % (Manual) 0.0 Myelocytes % (Man) 0 Promyelocytes % (Man) 0 Blast Cells % (Manual) 0 Nucleated RBC % 0 Metamyelocytes 0 Anisocytosis 1+ Macrocytosis 1+ Sodium 141 Potassium 4.2 Chloride 104 Carbon Dioxide 30 Anion Gap 7 L BUN 23 H Creatinine 1.0 Creat Clearance w eGFR 52.57 POC Glucometer Random Glucose 79 Calcium 9.4 Phosphorus 3.6 Magnesium 1.6 L Total Bilirubin 0.5 AST 23 ALT 22 Alkaline Phosphatase 91 Troponin I < 0.02 Total Protein 6.5 Albumin 3.1 L 09/24/18 09/24/18 05:44 12:07 WBC RBC Hgb Hct MCV MCH MCHC RDW Plt Count MPV Absolute Neuts (auto) Neutrophils % Neutrophils % (Manual) Band Neutrophils % Lymphocytes % Lymphocytes % (Manual) Monocytes % Monocytes % (Manual) Eosinophils % Eosinophils % (Manual) Basophils % Basophils % (Manual) Myelocytes % (Man) Promyelocytes % (Man) Blast Cells % (Manual) Nucleated RBC % Metamyelocytes Anisocytosis Macrocytosis Sodium Potassium Chloride Carbon Dioxide Anion Gap BUN Creatinine Creat Clearance w eGFR POC Glucometer 91 155 Random Glucose Calcium Phosphorus Magnesium Total Bilirubin AST ALT Alkaline Phosphatase Troponin I Total Protein Albumin Current Medications Generic Name Dose Route Start Last Admin Trade Name Ashishq PRN Reason Stop Dose Admin Amlodipine Besylate 5 mg 09/24/18 10:00 09/24/18 12:26 Norvasc - PO 5 mg DAILY ANDIE Administration Aspirin 81 mg 09/24/18 10:00 09/24/18 12:26 Asa - PO 81 mg DAILY ANDIE Administration Atorvastatin Calcium 40 mg 09/23/18 22:00 09/23/18 21:35 Lipitor - PO 40 mg HS ANDIE Administration Clopidogrel Bisulfate 75 mg 09/24/18 10:00 09/24/18 12:26 Plavix - PO 75 mg DAILY ANDIE Administration Heparin Sodium (Porcine) 5,000 unit 09/23/18 14:15 09/24/18 13:59 Heparin - SQ 5,000 unit TID ANDIE Administration Insulin Aspart 1 vial 09/23/18 16:30 09/24/18 12:37 Novolog Vial Sliding Scale - SQ 2 unit ACHS ANDIE Administration Protocol Isosorbide Mononitrate 30 mg 09/24/18 10:00 09/24/18 12:26 Imdur - PO 30 mg DAILY ANDIE Administration Metoprolol Tartrate 50 mg 09/23/18 22:00 09/24/18 12:26 Lopressor - PO 50 mg BID ANDIE Administration ASSESSMENT AND PLAN: This is an 88 year old woman with a history of HTN, hyperlipidemia, CAD, stent, type 2 DM who presented to the ED with right-sided chest pain. 1. Chest pain - Improved - Likely musculoskeletal - Chest CTA negative for PE - Troponins negative x3 - Echocardiogram shows normal LV, normal LVEF, normal wall motion, mild TR, normal RV systolic pressure, moderate MR, E/A reversal 2. CAD, history of cornoary stent - Continue aspirin, Lopressor, Lipitor, Imdur, Plavix 3. HTN - Continue Norvasc, Lopressor 4. Hyperlipidemia - Continue Lipitor 5. Type 2 DM - Metformin held secondary to CT contrast 6. Disposition - Discharge home
== END 2018-09-24 19:02 | disposition home or self-care (01) ==
LOC: JER 10:06 → JERBED 12:40 → J4W 20:52
PROVIDERS: ADMIT Internal Medicine; ATTEND Internal Medicine
PROC: 3E013GC Introduction of Other Therapeutic Substance into Subcutaneous Tissue, Percutaneous Approach (ICD-10-PCS; principal; 2018-09-23)
DX: R07.1 Chest pain on breathing (principal); R07.82 Intercostal pain; R06.02 Shortness of breath; I10 Essential (primary) hypertension; I25.10 Atherosclerotic heart disease of native coronary artery without angina pectoris; E11.9 Type 2 diabetes mellitus without complications; E78.5 Hyperlipidemia, unspecified; Z79.84 Long term (current) use of oral hypoglycemic drugs; Z95.5 Presence of coronary angioplasty implant and graft
CPT/HCPCS: 36415; 71046-TC-FY; 71275-TC; 80053; 81003; 81015; 82550; 82962; 83735; 84100; 84484; 85025; 85610; 87804; 93005; 93010; 93306-TC; 96372; 99285-25; G0378; J1644

== ENCOUNTER 2019-10-17 10:32 | Emergency (ER) | payer MEDICARE, OTHER ==
[2019-10-17 10:46] VITALS: BMI 22.6
--- NOTE | 2019-10-17 12:15 | PDOC ---
History of Present Illness - General Chief Complaint: Injury Stated Complaint: FALL/INJURY Time Seen by Provider: 10/17/19 11:16 History Source: Patient Exam Limitations: No Limitations - History of Present Illness Initial Comments: 10/17/19 12:16 89-year-old female presents to ED with complaints of left foot pain for the past few days causing her difficulty ambulating. Patient states due to the pain had tripped yesterday landing on her left side hitting her ribs. Patient states no head injury and denies any anticoagulation therapy. Patient denies history of cellulitis and gout but states family history of gout. Patient denies radiation of pain, recent injury prior to yesterday, or recent surgery. Timing/Duration: getting worse Severity: moderate Associated Symptoms: reports: other Past History - Travel Traveled outside of the country in the last 30 days: No Close contact w/someone who was outside of country & ill: No - Past Medical History Allergies/Adverse Reactions: Allergies Allergy/AdvReac Type Severity Reaction Status Date / Time No Known Allergies Allergy Verified 10/17/19 12:14 Home Medications: Ambulatory Orders Atorvastatin Ca [Lipitor] 40 mg PO HS 12/06/15 Paroxetine HCl [Paxil] 30 mg PO DAILY 12/06/15 Amlodipine Besylate [Norvasc -] 5 mg PO DAILY 09/23/18 Aspirin [ASA -] 81 mg PO DAILY 09/23/18 Glimepiride 4 mg PO DAILY 09/23/18 Isosorbide Mononitrate [Imdur -] 30 mg PO DAILY 09/23/18 metFORMIN HCL [Metformin HCl] 1 gm PO BID 09/23/18 Acetaminophen [Tylenol -] 1,000 mg PO TID PRN #42 tablet 10/17/19 Cephalexin [Keflex] 500 mg PO BID #14 capsule 10/17/19 Cranberry Fruit Extract [Cranberry] 500 mg PO ASDIR 10/17/19 Losartan Potassium [Cozaar -] 25 mg PO DAILY 10/17/19 Ranitidine HCl 150 mg PO BID 10/17/19 Cardiac Disorders: Yes (CAD) COPD: No Diabetes: Yes HTN: Yes Hypercholesterolemia: Yes - Surgical History Cardiac Surgery: Yes (2 stents) - Immunization History Immunization Up to Date: Yes - Psycho Social/Smoking Cessation Hx Smoking History: Never smoked Have you smoked in the past 12 months: No Hx Alcohol Use: No Drug/Substance Use Hx: No Substance Use Type: None Patient Lives Alone: Yes Lives with/in: lives alone Review of Systems - Review of Systems Able to Perform ROS?: No Constitutional: No: Symptoms Reported Respiratory: No: Symptoms reported Cardiac (ROS): Yes: Chest Pain (left ribs) ABD/GI: No: Symptoms Reported : No: Symptoms Reported Musculoskeletal: Yes: Joint Pain (Left ribs left foot) Integumentary: Yes: Erythema Neurological: No: Symptoms reported Hematologic/Lymphatic: No: Symptoms Reported *Physical Exam - Vital Signs Last Vital Signs Temp Pulse Resp BP Pulse Ox 98 F 95 H 18 169/95 98 10/17/19 10:40 10/17/19 10:40 10/17/19 10:40 10/17/19 10:40 10/17/19 10:40 - Physical Exam General Appearance: Yes: Nourished, Appropriately Dressed. No: Apparent Distress Neck: positive: Supple. negative: Tender, Decreased range of motion Respiratory/Chest: positive: Chest Tender (Left 6-8 ribs at the mid axillary line extending anteriorly no crepitus no deformity), Lungs Clear, Normal Breath Sounds. negative: Respiratory Distress, Accessory Muscle Use Cardiovascular: positive: Regular Rhythm, Regular Rate. negative: Murmur Extremity: positive: Normal Capillary Refill, Normal Range of Motion. negative : Normal Inspection (Patient noted erythematous warm to touch and slightly edematous area measuring 4 x 5 cm over the dorsal aspect of left foot and MTP area.) Integumentary: positive: Erythema, Swelling Neurologic: positive: Motor Strength 5/5 (Ambulatory with limp) ED Treatment Course - ADDITIONAL ORDERS Additional order review: Laboratory Results 10/17/19 11:22 Uric Acid 6.0 - RADIOLOGY Radiology Studies Ordered: Category Date Time Status FOOT-LEFT [RAD] Stat Radiology 10/17/19 11:21 Completed RIBS-LEFT SIDE [RAD] Stat Radiology 10/17/19 11:21 Completed Medical Decision Making - Medical Decision Making 10/17/19 11:00 Patient with left foot pain for approximately 2 to 3 days now worsening and discomfort. Patient yesterday due to discomfort of the left foot had tripped and fallen landing on her left side. Patient now complaining of left rib pain. Patient denies head injury. Patient on no anticoagulation therapy. Patient denies history of gout exam: Patient with red warm and slightly edematous area over the dorsal aspect of left foot over the fifth MTP. Patient also with tenderness to the left 6-8 ribs at the mid axillary line and anteriorly. No crepitus no deformity Plan: Rib x-ray, foot x-ray uric acid. 10/17/19 12:10 Laboratory Tests 10/17/19 11:22 Uric Acid 6.0 Foot x-ray negative for acute pathology Rib x-ray shows fracture of the left sixth rib and possibly the left fourth rib in the mid axillary line. A pneumothorax is not seen. There is no sign of pleural effusion or atelectasis. Since patient's uric acid was negative. Patient be treated for soft tissues cellulitis of the left foot area was circled with a permanent marker. Son is aware that if the redness swelling or worsening symptoms go beyond the line to return to the ED. Patient was given extra strength Tylenol for rib discomfort along with foot pain. Patient also given rib fracture instructions in regards to splinting, deep breathing, and to stay away from people with upper respiratory infections. Discharge - Discharge Information Problems reviewed: Yes Clinical Impression/Diagnosis: Left rib fracture, Cellulitis Condition: Good Disposition: HOME - Additional Discharge Information Prescriptions: Acetaminophen [Tylenol -] 1,000 mg PO TID PRN #42 tablet PRN Reason: Pain Cephalexin [Keflex] 500 mg PO BID #14 capsule - Follow up/Referral Referrals: Saqib Pisano II, DO [Primary Care Provider] - - Patient Discharge Instructions Patient Printed Discharge Instructions: DI for Cellulitis -- Adult, DI for Rib Fracture Additional Instructions: Please take deep breaths throughout the day when awake approximately 10 deep breaths per hour. Splint area with a soft pillow or hands when deep breathing and coughing. Please stay away from people with upper respiratory infections as this may increase her chances of becoming ill. Take antibiotics as prescribed and observe for worsening redness swelling or discomfort past the permanent marker line over the next 2 days. If noted please return to the nearest ER. - Post Discharge Activity
[2019-10-17 12:48] VITALS: BP 167/84; PULSE 83; TEMP 98.2
== END 2019-10-17 12:48 | disposition home or self-care (01) ==
LOC: SUPCPDRO 10:32 → JER 10:32
DX: S22.32XA Fracture of one rib, left side, initial encounter for closed fracture (principal); L03.116 Cellulitis of left lower limb; W01.0XXA Fall on same level from slipping, tripping and stumbling without subsequent striking against object, initial encounter; Y93.89 Activity, other specified; Y92.038 Other place in apartment as the place of occurrence of the external cause; Y99.8 Other external cause status; I25.10 Atherosclerotic heart disease of native coronary artery without angina pectoris; I10 Essential (primary) hypertension; Z95.5 Presence of coronary angioplasty implant and graft; E78.00 Pure hypercholesterolemia, unspecified; E11.9 Type 2 diabetes mellitus without complications; Z79.84 Long term (current) use of oral hypoglycemic drugs
CPT/HCPCS: 36415; 71101-TC-LT-FY; 73630-TC-LT; 84550; 99282-25

== ENCOUNTER 2021-03-08 10:44 | Emergency (ER) | payer MEDICARE, OTHER ==
[2021-03-08 10:52] VITALS: BMI 25.0
[2021-03-08] MEDS ORDERED: ASPIRIN 325 MG TABLET PO ONE (11:55)
[2021-03-08] MEDS ORDERED: ASPIRIN 325 MG ENTERIC COATED TABLET (FP) ONE (12:00)
[2021-03-08 12:25] LABS: BASO % 0.6 % (0-2.0); EOS % 3.3 % (0-4.5); HEMATOCRIT 33.1 % (32.4-45.2); HEMOGLOBIN 11.3 GM/dL (10.7-15.3); LYMPH % 16.9 % (8-40); MCH 33.8 pg (25.7-33.7); MEAN CELL VOLUME 99.3 fl (80-96); MEAN PLT VOLUME 9.9 fl (7.5-11.1); MONO % 14.4 % (3.8-10.2); NEUT % 64.8 % (42.8-82.8); PLATELET COUNT 179 K/MM3 (134-434); RBC 3.34 M/mm3 (3.60-5.2); RDW 13.2 % (11.6-15.6); WHITE BLOOD COUNT 7.6 K/mm3 (4.0-10.0)
[2021-03-08 12:38] LABS: INR 1.11 (0.83-1.09); PROTHROMBIN TIME (PATIENT) 13.4 SEC (9.7-13.0)
[2021-03-08 12:42] LABS: CHLORIDE 101 mmol/L (98-107); SODIUM 135 mmol/L (136-145)
[2021-03-08 12:44] LABS: CALCIUM 9.5 mg/dL (8.5-10.1)
[2021-03-08 12:45] LABS: ALBUMIN 3.2 g/dl (3.4-5.0); ANION GAP 8 MMOL/L (8-16); BLOOD UREA NITROGEN 14.8 mg/dL (7-18); CO2 27 mmol/L (21-32); GLUCOSE,RANDOM 191 mg/dL (74-106)
[2021-03-08 12:47] LABS: URIC ACID 6.5 mg/dL (2.6-7.2)
[2021-03-08 12:48] LABS: CREATININE 1.1 mg/dL (0.55-1.3); SGOT/AST 21 U/L (15-37); SGPT/ALT 14 U/L (13-61)
[2021-03-08 12:50] LABS: BILIRUBIN,TOTAL 1.2 mg/dL (0.2-1); TOT PROT 6.9 g/dl (6.4-8.2)
[2021-03-08 12:51] LABS: ALK PHOS 71 U/L (45-117)
[2021-03-08] MEDS ORDERED: SODIUM CHLORIDE 500 ML IV STA ×2 (13:01→15:39)
[2021-03-08 13:19] LABS: ERYTHROCYTE SEDIMENTATION RATE 100 mm/hr (0-30)
[2021-03-08] MEDS ORDERED: AZITHROMYCIN 250 MG TABLET PO ONE (18:17)
[2021-03-08] MEDS ORDERED: CARVEDILOL 25 MG TABLET (FP) PO ONE (18:19)
[2021-03-08] MEDS ORDERED: AZITHROMYCIN 250 MG TABLET ONE (18:20)
[2021-03-08] MEDS ORDERED: CARVEDILOL 12.5 MG TABLET (FP) ONE (18:20)
[2021-03-08 18:26] VITALS: BP 180/90; PULSE 81; TEMP 98.6
== END 2021-03-08 19:00 | disposition home or self-care (01) ==
LOC: JER 10:44
PROC: 3E0337Z Introduction of Electrolytic and Water Balance Substance into Peripheral Vein, Percutaneous Approach (ICD-10-PCS; principal; 2021-03-08)
PROC: 3E0337Z Introduction of Electrolytic and Water Balance Substance into Peripheral Vein, Percutaneous Approach (ICD-10-PCS; 2021-03-08)
DX: M10.9 Gout, unspecified (principal); R07.9 Chest pain, unspecified
CPT/HCPCS: 36415; 71045-TC-FY; 71275-TC; 73630-TC-LT; 80053; 82550; 84484; 84550; 85025; 85379; 85610; 85651; 86140; 93005; 93010; 96360; 96361; 99285-25; C9803; Q9967; U0003; U0005

== ENCOUNTER 2022-02-28 18:20 | Emergency (ER) | payer MEDICARE, OTHER ==
[2022-02-28 18:29] VITALS: BP 148/81; PULSE 104; TEMP 98.2; BMI 20.2
[2022-02-28] MEDS ORDERED: ACETAMINOPHEN 500 MG TABLET (FP) PO ONE (20:22)
[2022-02-28] MEDS ORDERED: LIDOCAINE 5% TOPICAL PATCH TP ONE (20:22)
[2022-02-28] MEDS ORDERED: METHOCARBAMOL 500 MG TABLET PO ONE (20:23)
[2022-02-28] MEDS ORDERED: METHOCARBAMOL 500 MG TABLET ONE (21:15)
[2022-02-28] MEDS ORDERED: LIDOCAINE 5% TOPICAL PATCH ONE (21:15)
[2022-02-28] MEDS ORDERED: ACETAMINOPHEN 500 MG TABLET (FP) ONE (21:17)
[2022-02-28] MEDS ORDERED: LIDOCAINE PATCH REMOVAL MC SCH (22:00)
[2022-03-01 00:01] LABS: EPI CELLS 9 /uL (0-25.1); HYALINE CASTS 0 /uL (0-3.1); PH,URINE 7.5 (5.0-8.0); URINE APPEARANCE CLEAR; URINE BACTERIA 5355 /uL (0-1359); URINE BILIRUBIN NEGATIVE (NEGATIVE); URINE COLOR YELLOW; URINE GLUCOSE (UA) NEGATIVE (NEGATIVE); URINE KETONE NEGATIVE (NEGATIVE); URINE LEUK ESTERASE 2+ (NEGATIVE); URINE NITRITE NEGATIVE (NEGATIVE); URINE PROTEIN NEGATIVE (NEGATIVE); URINE RBC 1 /uL (0-23.9); URINE UROBILINOGEN 0.2 mg/dL (0.2-1.0); URINE WBC 51 /uL (0-25.8)
== END 2022-03-01 00:38 | disposition home or self-care (01) ==
LOC: JER 18:20
DX: M54.42 Lumbago with sciatica, left side (principal); N39.0 Urinary tract infection, site not specified
CPT/HCPCS: 72170-TC-FY; 73502-TC-LT-FY; 81003; 87086; 87186; 99284-25